=== PATIENT | male | born 1995 | race Hispanic/Latino ===

== ENCOUNTER 2023-08-30 18:46 | Inpatient (IN) | payer OTHER ==
[~2023-08-30] VITALS: Ht 165.1 cm; Wt 70.7 kg
[2023-08-30 19:38] LABS: APPEARANCE,URINE CLOUDY (CLEAR); BILIRUBIN,URINE NEGATIVE (NEGATIVE); COLOR,URINE YELLOW (YELLOW); GLUCOSE, URINE (UA) NEGATIVE (NEGATIVE); KETONES,URINE NEGATIVE (NEGATIVE); LEUKOCYTE ESTERASE ,URINE NEGATIVE Leu/uL (NEGATIVE); NITRATE,URINE NEGATIVE (NEGATIVE); PROTEIN,URINE 70 mg/dL (NEGATIVE); UROBILINOGEN,URINE 0.2 mg/dL (0.2-1.0)
[2023-08-30 19:40] LABS: ADD UA MICROSCOPIC YES
[2023-08-30 19:51] LABS: MUCUS,URINE MANY LPF (None Seen); SQUAMOUS EPITHELIAL CELL,UR RARE /HPF (0-2)
[2023-08-30] MEDS: KETOROLAC 30MG VIAL (30MG/ML) IVP ONE (20:11)
[2023-08-30] MEDS: 0.9%NACL 1000ML 1,000 ML IV ONE (20:11)
[2023-08-30] MEDS: ONDANSETRON 4MG INJ IVP ONE (20:11)
[2023-08-30 20:20] LABS: BASOPHILS # (AUTO) 0.06 K/uL (0.00-0.20); BASOPHILS % (AUTO) 0.3 % (0.0-5.0); HEMATOCRIT 52.7 % (42-54); IMMATURE GRANULOCYTE ABSOLUTE 0.12 K/uL (0-1); LYMPHOCYTES # (AUTO) 0.9 K/uL (1.0-4.8); LYMPHOCYTES % (AUTO) 4.4 % (21.0-51.0); MEAN CORPUSCULAR HEMOGLOBIN 29.7 pg (27.0-33.0); MEAN CORPUSCULAR HGB CONC 34.5 g/dL (32.0-36.0); MEAN CORPUSCULAR VOLUME 86.1 fL (79-99); MONOCYTES # (AUTO) 1.3 K/uL (0.1-1.0); MONOCYTES % (AUTO) 6.3 % (3.0-13.0); NEUTROPHILS # (AUTO) 18.6 K/uL (1.8-7.7); NEUTROPHILS % (AUTO) 88.4 % (40.0-77.0); PLATELET COUNT (AUTO) 251 K/uL (130-400); RED BLOOD CELL COUNT(AUTO) 6.12 MIL/uL (4.50-6.20); RED CELL DISTRIBUTION WIDTH 12.9 % (11.0-15.5); WHITE BLOOD COUNT (AUTO) 21.1 K/uL (4.8-10.8)
[2023-08-30 20:35] LABS: POTASSIUM 3.7 mmol/L (3.5-5.1)
[2023-08-30 20:40] LABS: ALBUMIN 6.3 g/dL (3.5-5.0); BILIRUBIN,TOTAL 0.9 mg/dL (0.2-1.0); TOTAL PROTEIN, SERUM 10.9 g/dL (6.0-8.3)
[2023-08-30] MEDS: ZOSYN 3.375GM +NS 50ML IVPB ONE (21:13)
[2023-08-30] MEDS: LACTATED RINGERS 1000ML 1,000 ML IV ONE (21:17)
[2023-08-30] MEDS ORDERED: ZOSYN 3.375GM +NS 50ML IV ONE (21:30)
[2023-08-30] MEDS ORDERED: HYDRALAZINE 20MG/ML VIAL IV PRN (22:00)
[2023-08-30] MEDS ORDERED: DiphenhydrAMINE HCL 50 MG/ML VIAL IV PRN (22:00)
[2023-08-30] MEDS ORDERED: ZOLPIDEM TARTRATE 5 MG TAB PO PRN (22:00)
[2023-08-30] MEDS ORDERED: FAMOTIDINE 20MG VIAL IV PRN (22:00)
[2023-08-30] MEDS ORDERED: DEXTROSE 50%-WATER 50 ML DISP.SYRIN IV PRN (22:00)
[2023-08-30] MEDS ORDERED: GUAIFENESIN-DM 200/20 MG 10 ML PO PRN (22:00)
[2023-08-30] MEDS ORDERED: TRAMADOL HCL 50 MG TABLET PO PRN (22:00)
[2023-08-30] MEDS ORDERED: NITROGLYCERIN 0.4 MG SL TAB SL PRN (22:00)
[2023-08-30] MEDS ORDERED: ONDANSETRON 4MG INJ IV PRN (22:00)
[2023-08-30] MEDS ORDERED: GLUCAGON 1MG KIT 1 MG ML IM PRN (22:00)
[2023-08-30] MEDS ORDERED: LACTULOSE 20 GM/30 ML UDCUP PO PRN (22:00)
[2023-08-30] MEDS ORDERED: ACETAMINOPHEN 325 MG TAB PO PRN ×2 (22:00)
[2023-08-30] MEDS ORDERED: MAG/ALUM/SIMETH 30 ML UDCUP PO PRN (22:00)
[2023-08-30] MEDS ORDERED: VANCOMYCIN PROTOCOL PER PHARMACY IV PRN (22:00)
[2023-08-30] MEDS: 0.9%NACL 1000ML 1,000 ML IV SCH (23:34)
[2023-08-30] MEDS: VANCOMYCIN 1.75 GM/250 ML BAG 250 ML IV ONE (23:34)
[2023-08-31] VITALS (9 sets, daily range): BP systolic 106–119; BP diastolic 52–78; PULSE 58–80; RESP 17–18; O2SAT 97–99
[2023-08-31] MEDS: ZOSYN 3.375GM+NS 50ML 50 ML IV SCH (04:06)
[2023-08-31] MEDS: INSULIN HUMULIN R 100 UNIT/ML 3ML SQ SCH (05:23)
[2023-08-31 05:25] LABS: BASOPHILS # (AUTO) 0.03 K/uL (0.00-0.20); BASOPHILS % (AUTO) 0.2 % (0.0-5.0); HEMATOCRIT 42.8 % (42-54); IMMATURE GRANULOCYTE ABSOLUTE 0.05 K/uL (0-1); LYMPHOCYTES % (AUTO) 13.7 % (21.0-51.0); MEAN CORPUSCULAR HEMOGLOBIN 30.1 pg (27.0-33.0); MEAN CORPUSCULAR HGB CONC 34.1 g/dL (32.0-36.0); MEAN CORPUSCULAR VOLUME 88.2 fL (79-99); MONOCYTES # (AUTO) 1.1 K/uL (0.1-1.0); MONOCYTES % (AUTO) 7.6 % (3.0-13.0); NEUTROPHILS # (AUTO) 11.6 K/uL (1.8-7.7); NEUTROPHILS % (AUTO) 78.2 % (40.0-77.0); PLATELET COUNT (AUTO) 209 K/uL (130-400); RED BLOOD CELL COUNT(AUTO) 4.85 MIL/uL (4.50-6.20); WHITE BLOOD COUNT (AUTO) 14.8 K/uL (4.8-10.8)
[2023-08-31 06:02] LABS: HEMOGLOBIN A1C 5.3 % (4.0-6.0)
[2023-08-31 06:03] LABS: BILIRUBIN,DIRECT 0.2 mg/dL (0.0-0.3); BILIRUBIN,TOTAL 0.7 mg/dL (0.2-1.0); CREATININE 1.7 mg/dL (0.5-1.3); MAGNESIUM 1.7 mg/dL (1.80-2.40); POTASSIUM 4.4 mmol/L (3.5-5.1); THYROID STIMULATING HORMONE 0.83 uIU/mL (0.36-3.74); TOTAL PROTEIN, SERUM 7.6 g/dL (6.0-8.3)
[2023-08-31] MEDS: MAGNESIUM 2GM PREMIX 50ML 50 ML IV PRN (08:27)
[2023-08-31] MEDS: FAMOTIDINE 20MG VIAL IV SCH (08:27)
[2023-08-31] MEDS: HEPARIN 5,000 UNIT VIAL SQ SCH (08:37)
[2023-08-31] MEDS: VANCOMYCIN 1G/250ML KIT 250 ML IV SCH (22:07)
[2023-09-01 04:32] VITALS: BP 117/68; PULSE 62; RESP 18
[2023-09-01 08:00] VITALS: BP 108/50; PULSE 59; RESP 18; O2SAT 97
[2023-09-01 08:17] LABS: BASOPHILS # (AUTO) 0.04 K/uL (0.00-0.20); BASOPHILS % (AUTO) 0.4 % (0.0-5.0); EOSINOPHILS # (AUTO) 0.13 K/uL (0.00-0.70); EOSINOPHILS % (AUTO) 1.5 % (0.0-8.0); HEMATOCRIT 37.1 % (42-54); IMMATURE GRANULOCYTE ABSOLUTE 0.02 K/uL (0-1); LYMPHOCYTES # (AUTO) 3.4 K/uL (1.0-4.8); LYMPHOCYTES % (AUTO) 38.1 % (21.0-51.0); MEAN CORPUSCULAR HEMOGLOBIN 30.2 pg (27.0-33.0); MONOCYTES # (AUTO) 0.7 K/uL (0.1-1.0); MONOCYTES % (AUTO) 7.9 % (3.0-13.0); NEUTROPHILS # (AUTO) 4.6 K/uL (1.8-7.7); NEUTROPHILS % (AUTO) 51.9 % (40.0-77.0); PLATELET COUNT (AUTO) 165 K/uL (130-400); RED BLOOD CELL COUNT(AUTO) 4.17 MIL/uL (4.50-6.20); RED CELL DISTRIBUTION WIDTH 13.2 % (11.0-15.5); WHITE BLOOD COUNT (AUTO) 8.9 K/uL (4.8-10.8)
[2023-09-01 08:34] LABS: ALBUMIN 3.2 g/dL (3.5-5.0); BILIRUBIN,TOTAL 0.3 mg/dL (0.2-1.0); TOTAL PROTEIN, SERUM 6.2 g/dL (6.0-8.3)
[2023-09-01] MEDS ORDERED: AMOX500T2 PO (09:11)
[2023-09-01 12:00] VITALS: BP 110/56; PULSE 52; RESP 20
== END 2023-09-01 13:30 | disposition home or self-care (01) | DRG 392 ==
LOC: EDH 18:46 → EDHIP 18:47 → 3BH 23:52
PROVIDERS: ADMIT Hospitalist; ATTEND Internal Medicine
DX: K52.9 Noninfective gastroenteritis and colitis, unspecified (principal); N17.9 Acute kidney failure, unspecified; E86.0 Dehydration; I10 Essential (primary) hypertension; E11.65 Type 2 diabetes mellitus with hyperglycemia; D72.829 Elevated white blood cell count, unspecified
CPT/HCPCS: 36415; 71045; 74176; 80048; 80053; 80076; 81001; 82140; 82550; 82948; 83036; 83605; 83690; 83735; 83880; 84145; 84443; 85025; 87040; 87426; 96365; 96375; 99291; G0378; J1644; J1885; J2405; J2543; J3370; J3475; J3490; J7030; J7120